=== PATIENT | female | born 1980 ===

== ENCOUNTER → 2019-09-09 | Outpatient (CLI) | payer OTHER | END | disposition home or self-care (01) | LOC: PRENATAL 10:00 | DX: O35.0XX1 Maternal care for (suspected) central nervous system malformation in fetus, fetus 1 (principal); O09.522 Supervision of elderly multigravida, second trimester; O34.211 Maternal care for low transverse scar from previous cesarean delivery; O99.212 Obesity complicating pregnancy, second trimester; O35.3XX1 Maternal care for (suspected) damage to fetus from viral disease in mother, fetus 1 ==